=== PATIENT | female | born 1965 | race Caucasian/White ===

== ENCOUNTER 2019-09-18 00:30 | Outpatient (CLI) | payer OTHER, MEDICARE, SELFPAY ==
[2019-09-18 18:07] LABS: SARS-CoV-2 RNA PCR Negative
== END 2019-09-18 00:31 | disposition home or self-care (01) ==
LOC: ANHCOVIDDT 00:32
PROVIDERS: PCP Internal Medicine; Visit Provider Internal Medicine Gastroenterology
DX: Z01.812 Encounter for preprocedural laboratory examination (principal); Z11.59 Encounter for screening for other viral diseases
CPT/HCPCS: 87635; C9803; U0003

== ENCOUNTER 2019-09-20 02:31 | Day surgery (SDC) | payer OTHER, MEDICARE, SELFPAY ==
[2019-09-17 12:11] VITALS: BMI 32.8
[2019-09-20] MEDS: LACTATED RINGERS 1,000 ML 150 ML IV CONT (07:15)
--- NOTE | 2019-09-20 07:16 | PM.HPGS ---
History of Present Illness History of Present Illness Consent: Risks, benefits, and alternatives have been discussed and questions answered. Patient agrees to proceed with procedure. Chief complaint: NEOPLASM SCREENING Narrative: Lashawn Jacob is a 53 year old W female referred for screening colonoscopy secondary to a history of colonic polyps and a family history of colon cancer maternal grandmother. She was sent a letter over a year ago but did not return at that time. Patient does have chronic diarrhea. Her metformin was discontinued. This could be related to bile acid induced diarrhea and/or irritable bowel syndrome. Would suggest a trial of Questran and this did not help resume her dicyclomine. Meds Home Medications and Allergies Home Medications Medication Instructions Recorded Confirmed Type alprazolam 0.5 mg PO TID PRN 09/17/19 09/17/19 History cetirizine [Zyrtec] 10 mg PO DAILY 09/17/19 09/17/19 History citalopram 20 mg PO QAM 09/17/19 09/17/19 History hydrocodone-acetaminophen 1 tablet PO BID PRN 09/17/19 09/17/19 History Allergies Allergy/AdvReac Type Severity Reaction Status Date / Time ciprofloxacin Allergy Rash Verified 09/20/19 07:06 Sulfa (Sulfonamide Allergy Rash Verified 09/20/19 07:06 Antibiotics) Exam Const: Orientation/consciousness: patient oriented x3 Resp: Auscultation: clear to auscultation bilaterally Cardio: Rate: regular rate Rhythm: regular rhythm Heart sounds: no murmurs GI: GI Palp: Yes Soft to palpation, No Tenderness to palpation present (GI), Yes No hepatosplenomegaly present and No Palpable mass present Auscultation: normal bowel sounds Neuro: General: patient oriented x3 and no focal motor deficits Extrem: General: no pedal edema Assessment and Plan Additional Plan Screening colonoscopy secondary history of colonic polyps and family history of colon cancer
--- NOTE | 2019-09-20 07:19 | P.PNAN_ITS ---
Anes - Initial Pre Proc Eval Procedure: Operation Date: 09/20/19 08:30 Proposed Procedures p Screening Colonoscopy - Zachariah Webb MD Date/Time: 09/20/19 07:19 Surgeon: Zachariah Webb MD Pre Op Diagnosis: NEOPLASM SCREENING Patient Data Age: 53 Gender: F Height: 5 ft 8 in Weight: 98 kg Allergies Allergy/AdvReac Type Severity Reaction Status Date / Time ciprofloxacin Allergy Rash Verified 09/20/19 07:06 Sulfa (Sulfonamide Allergy Rash Verified 09/20/19 07:06 Antibiotics) Home Medications Medication Instructions Recorded Confirmed Type alprazolam 0.5 mg PO TID PRN 09/17/19 09/17/19 History cetirizine [Zyrtec] 10 mg PO DAILY 09/17/19 09/17/19 History citalopram 20 mg PO QAM 09/17/19 09/17/19 History hydrocodone-acetaminophen 1 tablet PO BID PRN 09/17/19 09/17/19 History Patient hx anesthesia problems: none Family hx anesthesia problems: none REPLACED BY [facility] Past Medical History Medical History Anxiety Chronic pain syndrome Anes - Eval Final PreProcedure Day of Procedure 09/20/19 07:19 Patient weight: obese Heart: regular rate and rhythm Lungs: clear to auscultation Airway: Mallampati scale class II Neurological: alert and oriented Last oral intake: >/= 8 hours ASA classification: III Emergent: no Anesthetic plan: proceed Anesthesia type and monitoring: general GIVS and standard monitoring Informed Consent: The patient's anesthetic plan and its attendant risks and benefits were discussed with the patient/family/POA. Questions were solicited and answers provided to the satisfaction of the patient/family/POA.
[2019-09-20 07:35] VITALS: BP 167/104; PULSE 82; RESP 20; TEMP 36.7; O2SAT 98; BMI 33.6
[2019-09-20 07:44] VITALS: BP 161/83; PULSE 61; RESP 16; O2SAT 99
[2019-09-20 09:20] VITALS: BP 137/80; PULSE 68; RESP 16; O2SAT 96
[2019-09-20 09:30] VITALS: BP 145/93; PULSE 60; RESP 13; O2SAT 100
[2019-09-20 09:40] VITALS: BP 152/88; PULSE 60; RESP 17; O2SAT 99
== END 2019-09-20 09:54 | disposition home or self-care (01) ==
PROVIDERS: PCP Internal Medicine; Visit Provider Internal Medicine Gastroenterology
PROC: 0DJD8ZZ Inspection of Lower Intestinal Tract, Via Natural or Artificial Opening Endoscopic (ICD-10-PCS; CPT 45378; principal; 2019-09-20 08:30)
DX: Z12.11 Encounter for screening for malignant neoplasm of colon (principal); R19.7 Diarrhea, unspecified; D12.2 Benign neoplasm of ascending colon; K57.30 Diverticulosis of large intestine without perforation or abscess without bleeding; Z80.0 Family history of malignant neoplasm of digestive organs; F41.9 Anxiety disorder, unspecified; G89.4 Chronic pain syndrome; Z79.891 Long term (current) use of opiate analgesic; E66.9 Obesity, unspecified; Z68.33 Body mass index [BMI] 33.0-33.9, adult
CPT/HCPCS: 45388; 87635; 88305; C9803; J2704; J7120; U0003

== ENCOUNTER 2023-08-25 09:13 | Outpatient (CLI) | payer OTHER, MEDICARE, SELFPAY ==
--- NOTE | ~2023-08-25 | MM_ITS ---
EXAMINATION: MM screening reji BI w wilfred HISTORY: Screening TECHNIQUE: Craniocaudal and mediolateral oblique 3-D tomosynthesis images were obtained and synthetic 2-D images were generated. CAD analysis was submitted and interpreted. COMPARISON: Comparison to multiple prior studies sequentially, with oldest reviewed study dated 01/12. BREAST PARENCHYMAL COMPOSITION: Dense: The breasts are heterogeneously dense, which may obscure small masses FINDINGS: There is no evidence of suspicious mass, calcification, or architectural distortion to sugg est malignancy in either breast. There has been no suspicious interval change. IMPRESSION: 1. No mammographic evidence of malignancy. 2. Recommend routine screening mammography in one year. BI-RADS Category 1: Negative Reviewed, dictated and finalized at location B.
--- NOTE | ~2023-08-25 | DEXA_ITS ---
Bone Density Report Name: DELMIS TRACY Age: 57 Sex: Female Ethnicity: White Date of : 1965 Indication: postmenopausal; screening for osteoporosis; height loss; history of glucocorticoids; Referring Provider: KIT, REBECCA Smith Study: Bone densitometry was performed. Exam Date: August 25, 2023 Accession number: [id number] Bone Density: Region BMD T-score Z-score Classification AP Spine(L1-L4) 1.049 0.0 1.2 Normal Femoral Neck (Left) 0.890 0.4 1.5 Normal Total Hip (Left) 1.165 1.8 2.6 Normal Femoral Neck (Right) 0.869 0.2 1.3 Normal Total Hip (Right) 1.121 1.5 2.2 Normal Total Hip Mean 1.143 1.7 2.4 Normal World Health Organization criteria for BMD impression classify patients as: Normal (T-score at or above -1.0), Osteopenia (T-score between -1.0 and -2.5), or Osteoporosis (T-score at or below -2.5). 10-year Fracture Risk: FRAX not reported because: All T-scores for Spine Total, Hip Total, Femoral Neck at or above -1.0 Clinical Information Provided by Patient: Smokes Has taken Glucocorticoids Patient maximum height was 68.0 Menopause Age: 41 No regular weight bearing exercise Drinks caffeinated beverages Onset of menses at age 13 Number of children 3 Impression: The patient has normal bone mass. The patient has risk factors, including: smoking, history of glucocorticoid therapy. Discussion: BONE DENSITY IS ABOVE THE MINIMUM DESIRABLE LEVEL AT ALL SKELETAL SITES TESTED. This patient?s bone mineral density is above the minimum desirable level (T-score -1.0 or better) at all sites measured. The patient should follow a healthful lifestyle (good nutrition with adequate calcium and vitamin D, and appropriate weight-bearing exercise). Follow-Up: Consider repeating this study in 5 years or sooner if there is some new clinical indication. Reported by: FRANKIE on 08/25/2023 9:50:00 AM. Reviewed, dictated and finalized at location ASharita MAGALLON
== END 2023-08-25 09:14 | disposition home or self-care (01) ==
LOC: ANHIMG 09:17
PROVIDERS: PCP Internal Medicine; Visit Provider Internal Medicine
DX: Z12.31 Encounter for screening mammogram for malignant neoplasm of breast (principal); M81.0 Age-related osteoporosis without current pathological fracture
CPT/HCPCS: 77063; 77067; 77080